=== PATIENT | male | born 1990 | race Caucasian/White ===

== ENCOUNTER 2022-09-08 17:39 | Emergency (ER) | payer OTHER, SELFPAY ==
[2022-09-08 17:58] VITALS: BP 148/87; PULSE 68; RESP 16; TEMP 36.3; O2SAT 99; BMI 27.1
--- NOTE | 2022-09-08 19:22 | ED_ITS ---
HPI - Ear Problem <SHIN PhillipsP - Last Filed: 09/08/22 19:25> General Chief complaint: Ear Stated complaint: EAR INFECTION RIGHT EAR Time Seen by Provider: 09/08/22 19:14 History of Present Illness HPI Narrative: 32-year-old male, never smoker, presents to the emergency department with worsening right ear pain since this morning. Patient endorses cold-like symptoms for the last week. No history ear infections. Related Data Previous Rx's Medication Instructions Recorded amoxicillin 875 mg-potassium 1 tab PO BID Otitis media 10 days 09/08/22 clavulanate 125 mg tablet #20 tabs Review of Systems <SHIN PhillipsP - Last Filed: 09/08/22 19:25> Review of Systems Narrative: Narrative: See HPI. GENERAL: Denies chills, fatigue, fever, sweats. HEENT: Denies sinus pain, sore throat, difficulty swallowing, dizziness. Endorses right ear pain. RESPIRATORY: Denies dyspnea, cough, wheezing, sputum. CARDIOVASCULAR: Denies chest pain, palpitations, edema. GASTROINTESTINAL: Denies nausea, vomiting, abdominal pain, diarrhea, constipation. : Denies dysuria, frequency, incontinence, hematuria, urinary retention, flank pain. MSK: Denies weakness, joint pain, or bony pain. SKIN: Denies rash, skin lesions, or pruritis. NEUROLOGIC: Denies weakness, dizziness, headache, numbness, confusion. PSYCHIATRIC: No concerning psychosocial issues. Exam <Tristen Kaye [employer] - Last Filed: 09/08/22 19:25> Narrative Exam Narrative: Exam Narrative: GENERAL: This is a well-nourished, well-developed patient, in no acute distress. HEAD: Atraumatic. Normocephalic. EYES: Pupils equal round and reactive. Extraocular motions intact. No scleral icterus, injection or drainage. ENT: Nose without bleeding, purulent drainage. Throat without erythema, tonsillar hypertrophy or exudate. Uvula midline. Airway patent. Right TM red and bulging, left TM and canals clear. No sinus tenderness. NECK: Trachea midline. No JVD or lymphadenopathy. Nontender. CARDIOVASCULAR: Regular rate and rhythm without murmurs, peripheral pulses intact, cap refill <2 sec. RESPIRATORY: Breath sounds equal and clear bilaterally. No wheezes, rales, or rhonchi. No cough. No increased respiratory effort. No accessory muscle use. MSK: Moves all extremities. Normal range of motion, no clubbing or edema. Neurovascularly intact. NEURO: A&O x 3. SKIN: Warm, dry, no rashes or lesions noted. Initial Vital Signs Initial Vital Signs: Vital Signs Temperature 97.4 F L 09/08/22 17:58 Pulse Rate 68 09/08/22 17:58 Respiratory Rate 16 09/08/22 17:58 Blood Pressure 148/87 H 09/08/22 17:58 Pulse Oximetry 99 09/08/22 17:58 Oxygen Delivery Method Room Air 09/08/22 17:58 Reviewed <Fly Corado DO - Last Filed: 09/09/22 06:30> Initial Vital Signs Initial Vital Signs: Vital Signs Temperature 97.4 F L 09/08/22 17:58 Pulse Rate 68 09/08/22 17:58 Respiratory Rate 16 09/08/22 17:58 Blood Pressure 148/87 H 09/08/22 17:58 Pulse Oximetry 99 09/08/22 17:58 Oxygen Delivery Method Room Air 09/08/22 17:58 Course <CHRISTOS Phillips - Last Filed: 09/08/22 19:25> Orders Ordered: Discontinued Medications Amoxicillin/Clavulanate Potassium (Amoxicillin/Clav 875/125 Mg) 1 tab PO NOW ONE Stop: 09/08/22 19:21 Last Admin: 09/08/22 19:27 Dose: 1 tab Documented By: SB Vital Signs Vital signs: Vital Signs - 8 hr 09/08/22 17:58 Temperature 97.4 F L Pulse Rate 68 Respiratory Rate 16 Blood Pressure 148/87 H Pulse Oximetry 99 Oxygen Delivery Method Room Air <Fly Corado DO - Last Filed: 09/09/22 06:30> Orders Ordered: Discontinued Medications Amoxicillin/Clavulanate Potassium (Amoxicillin/Clav 875/125 Mg) 1 tab PO NOW ONE Stop: 09/08/22 19:21 Last Admin: 09/08/22 19:27 Dose: 1 tab Documented By: SB Vital Signs Vital signs: Vital Signs - 8 hr 09/08/22 17:58 Temperature 97.4 F L Pulse Rate 68 Respiratory Rate 16 Blood Pressure 148/87 H Pulse Oximetry 99 Oxygen Delivery Method Room Air Medical Decision Making <CHRISTOS Phillips - Last Filed: 09/08/22 19:25> Differential Diagnosis Differential Diagnosis: Otitis media MDM Narrative Medical decision making narrative: 32-year-old male presents to the emergency department with worsening right ear pain since this morning. Assessment was consistent with right otitis media. Will treat with Augmentin, 1st dose in a emergency department. Recommended Tylenol or ibuprofen as needed for discomfort until the antibiotics take affect. Instructed patient to follow up with family doctor as needed. Patient verbalized understanding and was agreeable to course of action. Discharge Plan Departure Patient Disposition: Home Clinical Impression: Otitis media Instructions: DI for Middle Ear Infection-Adult Activity Restrictions/Additional Instructions: *You have been diagnosed with right ear infection. We will treat this with antibiotics. Please take Tylenol or ibuprofen as needed for discomfort until the antibiotics take affect. Please follow-up with your family doctor as needed. *What to do: *Please continue to take your regular medications as directed. [ x] New medication prescriptions sent to your pharmacy: [Adrienne Cain [ ] New medication written as a paper prescription [ ] No new medications given *Please follow up with your primary care provider in 2-3 days, call for an appointment. Let them know you were seen in the Emergency Department and that we ask that you be seen in follow up. We will electronically transmit a record of today's note if your PCP is in our system *If you do not have a primary care provider please contact the [facility] Resource line at [phone]. They will ask some questions about your medical history and help get you set up with a doctor in the community. ? Return to ER if you should have any new, worsening or concerning symptoms, such as worsening pain, severe headache, confusion, chest pain, difficulty breathing, fever greater than 101 F, shaking chills, persistent vomiting to the point that you cannot drink fluids, or other new or worsening symptoms. Prescriptions: New amoxicillin-pot clavulanate 875-125 mg tablet 1 tab PO BID 10 Days Qty: 20 0RF Referrals: Leon Walker MD [Primary Care Provider] - Stand Alone Forms: Patient Portal/API <Fly Corado DO - Last Filed: 09/09/22 06:30> Cosign ED Attending Darronature Attestation: I was immediately available in the department for consultation. This documentation has been reviewed and I agree with assessment and plan. Supervised by Fly Corado, DO
[2022-09-08] MEDS: AMOXICILLIN/CLAV 875/125 MG 1 TAB PO (19:27)
== END 2022-09-08 19:32 | disposition home or self-care (01) ==
PROVIDERS: Emergency Provider Registered Nurse; PCP Family Medicine
DX: H66.91 Otitis media, unspecified, right ear (principal)
CPT/HCPCS: 99283